=== PATIENT | male | born 1985 | race Caucasian/White ===

== ENCOUNTER 2023-09-28 18:00 | Emergency (ER) | payer MEDICAID, SELFPAY ==
[2023-09-28 18:07] VITALS: BP 116/67; PULSE 70; RESP 16; TEMP 36.8; O2SAT 99
--- NOTE | 2023-09-28 18:45 | ED.WOUNDLAC ---
HPI - Wound/Laceration General Chief Complaint: Wound/Laceration Stated Complaint: lac to knuckle Time Seen by Provider: 09/28/23 18:25 Source: patient Mode of arrival: ambulatory Limitations: no limitations History of Present Illness HPI narrative: This is a 38-year-old male that presents to the emergency department for laceration sustained just prior to arrival. Reports laceration to the left third finger sustained chopping wood. He is not up to date on tetanus. Denies decreased ROM or numbness. Related Data Allergies Allergy/AdvReac Type Severity Reaction Status Date / Time No Known Allergies Allergy Verified 09/28/23 18:09 Review of Systems Review of Systems: CONSTITUTIONAL: Denies fever SKIN: Reports laceration All systems reviewed & are unremarkable except as noted in HPI and below PMFSH Past Medical History Medical History (Updated 09/28/23 @ 20:25 by Lina Barbosa PA-C) History of traumatic brain injury Social History Social History (Updated 09/28/23 @ 18:46 by Lina Barbosa PA-C) Smoking status: Current every day smoker Exam Narrative: GENERAL: Well-appearing, well-nourished, and in no acute distress. HEAD: Normocephalic, atraumatic. EYES: EOMI. EXTREMITIES: Normal range of motion. No edema. 2cm linear laceration into subcutaneous tissue to the left third finger proximal phalanx dorsal surface SKIN: Warm, dry, no rash. NEURO: No focal deficits. Alert and oriented x3. PSYCH: Normal mood and affect Course Course Emergency Course: Patient and family educated on wound care Vital Signs Vital signs: Vital Signs Temperature 98.2 F 09/28/23 18:07 Pulse Rate 70 09/28/23 18:07 Respiratory Rate 16 09/28/23 18:07 Blood Pressure 116/67 09/28/23 18:07 Pulse Oximetry 99 09/28/23 18:07 Temperature 98.2 F 09/28/23 18:07 Pulse Rate 70 09/28/23 18:07 Respiratory Rate 16 09/28/23 18:07 Blood Pressure 116/67 09/28/23 18:07 Pulse Oximetry 99 09/28/23 18:07 Procedures Laceration Laceration 1: Date: 09/28/23 Time: 20:26 Site: hand Side (If applicable): left Size (cm): 2 Description: linear Depth: simple, single layer Local Anesthetic: lidocaine 1% Amount of anesthesia used (mL): 3 Pre-repair: wound explored and irrigated ====== Skin Level ====== Skin layer closed with: nylon Size (cm): 4-0 Number of sutures: 3 Technique: simple, interrupted ====== Subcutaneous Layer ====== ====== Muscle Layer ====== ====== Tendon Layer ====== MDM - Wound/Laceration MDM Narrative Medical decision making narrative: Patient presents to the emergency department for laceration to the left third finger sustained just prior to arrival. He is neurovascularly intact. His wound was irrigated and closed with sutures. He was updated on tetanus. Patient and family educated on further wound care. He is to follow up with primary provider. He was given warnings to return to the ER Differential Diagnosis Differential diagnosis: Likely laceration, abrasion and avulsion of skin Critical Care Time Critical Care Time Critical Care Time: No Discharge Plan Discharge Clinical Impression: Laceration Patient Disposition: Home, Self-Care Condition: Stable Instructions: Care For Your Stitches (ED), Laceration (ED) Additional Instructions: Return to the emergency department if you experience fever, redness or swelling of your wound, abnormal drainage from your wound, or any other symptoms that are concerning to you. Apply antibiotic ointment daily. Do not soak the wound. Clean with mild soap and water daily Follow-up with your primary care doctor for suture removal in 10-14 days. Follow-up/Referrals: UNKNOWN,DOCTOR [Primary Care Provider] -
[2023-09-28] MEDS: TETANUS,DIPHTHERIA,AC PERTUSSIS ADULT (0.5 ML) BOOSTRIX IM (19:13)
[2023-09-28 20:32] VITALS: PULSE 68; RESP 18; O2SAT 96
== END 2023-09-28 20:33 | disposition home or self-care (01) ==
PROVIDERS: Emergency Provider Physician Assistant
DX: S61.213A Laceration without foreign body of left middle finger without damage to nail, initial encounter (principal); Z23 Encounter for immunization; F17.200 Nicotine dependence, unspecified, uncomplicated; Z87.820 Personal history of traumatic brain injury; W27.0XXA Contact with workbench tool, initial encounter
CPT/HCPCS: 12001; 90471; 90715; 99282